=== PATIENT | male | born 1980 | race Caucasian/White ===

== ENCOUNTER 2020-09-19 08:22 | Outpatient (NON) | payer BC, SELFPAY ==
[2020-09-19 17:33] LABS: SARS-CoV-2 RNA PCR Negative
== END 2020-09-19 08:23 ==
PROVIDERS: Family Provider Family Medicine; PCP Family Medicine; Visit Provider Physician Assistant Medical
DX: R68.89 Other general symptoms and signs (principal); Z20.822 Contact with and (suspected) exposure to COVID-19
CPT/HCPCS: C9803; U0003; U0005

== ENCOUNTER 2022-12-31 06:50 | Day surgery (SDC) | payer BC, SELFPAY ==
[2022-12-19 15:38] VITALS: BMI 22.8
[2022-12-31 11:36] VITALS: BP 135/88; PULSE 70; RESP 16; TEMP 36.5; O2SAT 98
[2022-12-31] MEDS: LACTATED RINGERS 1,000 ML 150 ML IV CONT (11:49)
--- NOTE | 2022-12-31 12:21 | WPDANESEPPF ---
Anes - Initial Pre Proc Eval Procedure: Operation Date: 12/31/22 13:00 Proposed Procedures p Esophagogastroduodenoscopy - Jacobo Watt MD Date/Time: 12/31/22 12:21 Surgeon: Jacobo Watt MD Pre Op Diagnosis: GERD Patient Data Age: 42 Gender: M Height: 1.75 m Weight: 74.5 kg Last Vital Signs Temp 97.7 F 12/31/22 11:36 Pulse 70 12/31/22 11:36 Resp 16 12/31/22 11:36 BP 135/88 12/31/22 11:36 Pulse Ox 98 12/31/22 11:36 O2 Del Method Room Air 12/31/22 11:36 Allergies Allergy/AdvReac Type Severity Reaction Status Date / Time No Known Allergies Allergy Verified 12/31/22 11:36 Home Medications Medication Instructions Recorded Confirmed Type citalopram 40 mg tablet 40 mg PO DAILY #90 tabs 02/10/22 12/24/22 Rx hydroxyzine pamoate 25 mg capsule 25 mg PO BID PRN anxiety #20 caps 02/10/22 12/24/22 Rx (Vistaril) albuterol sulfate 90 mcg/actuation 1 inh inhalation Q4H PRN shortness 04/08/22 12/24/22 Rx aerosol inhaler (ProAir HFA) of breath or wheezing #6.7 grams omeprazole 40 mg capsule,delayed 40 mg PO DAILY #90 caps 08/05/22 12/24/22 Rx release syringe with needle, safety 3 mL #100 ea 09/26/22 12/24/22 Rx 23 gauge x 1 (BD Integra Syringe) trazodone 50 mg tablet See Rx Instructions .Route 10/30/22 12/24/22 Rx .COMPLEX #90 tabs testosterone cypionate 200 mg/mL 200 mg IM .Q 2 weeks #10 mL 12/09/22 12/24/22 Rx intramuscular oil lisinopril 30 mg tablet 30 mg PO DAILY #90 tabs 12/24/22 12/31/22 Rx Patient hx anesthesia problems: none Family hx anesthesia problems: none Results Review: All pre-operative results and documents have been reviewed as part of the pre-operative evaluation. [facility] Past Medical History Medical History Bloating BMI 23.0-23.9, adult BMI 24.0-24.9, adult BMI 25.0-25.9,adult Loose stools Low testosterone in male Vasectomy planned Family History Family History Father Hypertension Family history of elevated blood lipids Patient's father is in good health Diabetes mellitus Malignant neoplasm of prostate Mother Family history of malignant neoplasm of cervix Breast cancer Sibling No problems noted. 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 Gender identity (if verbalized by the patient): Male Spiritual care concerns: No Anes - Eval Final PreProcedure Day of Procedure 12/31/22 12:21 Patient weight: normal Heart: regular rate and rhythm Lungs: clear to auscultation Airway: Mallampati scale class II Neurological: alert and oriented Last oral intake: >/= 8 hours ASA classification: III Emergent: no Anesthetic plan: proceed Anesthesia type and monitoring: general GIVS and standard monitoring Results Review: All pre-operative results and documents have been reviewed as part of the pre-operative evaluation. Informed Consent: The patient's anesthetic plan and its attendant risks and benefits were discussed with the patient/family/POA. Questions were solicited and answers provided to the satisfaction of the patient/family/POA.
--- NOTE | 2022-12-31 12:42 | WPDHPUPDATE1 ---
History and Physical Update Update Date/Time: 12/31/22 12:42 History and Physical has been reviewed, including an updated exam of the patient. There are NO changes in the patient's condition. Risks, benefits, and alternatives have been discussed and questions answered. Patient agrees to proceed with procedure.
[2022-12-31 12:58] VITALS: BP 107/65; PULSE 68; RESP 18; O2SAT 93
[2022-12-31 13:08] VITALS: BP 103/69; PULSE 61; RESP 17; O2SAT 95
[2022-12-31 13:18] VITALS: BP 121/81; PULSE 64; RESP 16; O2SAT 99
== END 2022-12-31 13:27 | disposition home or self-care (01) ==
PROVIDERS: PCP Family Medicine; Visit Provider Internal Medicine Gastroenterology
PROC: 0DJ08ZZ Inspection of Upper Intestinal Tract, Via Natural or Artificial Opening Endoscopic (ICD-10-PCS; CPT 43235; principal; 2022-12-31 13:00)
DX: K21.00 Gastro-esophageal reflux disease with esophagitis, without bleeding (principal); K44.9 Diaphragmatic hernia without obstruction or gangrene; K29.70 Gastritis, unspecified, without bleeding; Z79.51 Long term (current) use of inhaled steroids; F17.210 Nicotine dependence, cigarettes, uncomplicated
CPT/HCPCS: 43239; 88305; J2704; J7120

== ENCOUNTER 2023-04-12 16:47 | Emergency (ER) | payer BC, SELFPAY ==
--- NOTE | ~2023-04-12 | XR_ITS ---
EXAMINATION: XR chest 2V DATE: 04/12/2023 17:50 INDICATION: Possible ingested foreign body TECHNIQUE: PA 11/16/2017 COMPARISON: None available FINDINGS: The lungs are free of acute opacities. No pleural effusion or pneumothorax. The cardiomedia stinal silhouette is normal. The visualized bones and soft tissues are unremarkable. IMPRESSION: 1. No acute cardiopulmonary abnormality. Reviewed, dictated and finalized at location F.
--- NOTE | ~2023-04-12 | XR_ITS ---
EXAMINATION: XR soft tissue neck INDICATION: Neck pain, possible ingested foreign body TECHNIQUE: Three views of the neck soft tissues are obtained. COMPARISON: 06/26/2017 FINDINGS: The neck soft tissues are unremarkable. No radiopaque foreign body is identified. No acute osseous findings are evident. IMPRESSION: 1. No radiopaque foreign body identified. Reviewed, dictated and finalized at location F.
[2023-04-12 16:51] VITALS: BP 176/121; PULSE 76; RESP 20; TEMP 36.4; O2SAT 96
--- NOTE | 2023-04-12 17:14 | ED.SKABFB ---
HPI - Skin/Abscess/Foreign Bdy General Chief complaint: Skin/Abscess/Foreign Body Stated complaint: foreign body in throat Time Seen by Provider: 04/12/23 17:11 Source: patient Mode of arrival: ambulatory History of Present Illness HPI narrative: patient is a pleasant 42-year-old male who presents the emergency department today ambulatory with a steady gait for evaluation of feeling like he has something stuck in the back of his throat. He states that he grilled out and thinks that maybe piece of the wire brush from cleaning the grill was on the steak he ate. He states he feels like he can feel the little piece to the back of his throat every time he swallows. He denies the complete inability to swallow, shortness of breath, feeling like his throat was swelling, inability to control his secretions, abdominal pain, nausea, vomiting, or any other symptoms. Related Data Home Medications Medication Instructions Recorded Confirmed omega 0-ytr-fbb-fish oil 1,000 mg 1 cap PO DAILY 01/23/23 01/23/23 (120 mg-180 mg) capsule (Fish Oil) Allergies Allergy/AdvReac Type Severity Reaction Status Date / Time No Known Allergies Allergy Verified 04/12/23 17:10 Review of Systems Review of Systems: CONSTITUTIONAL: Denies fever, chills, or sweats. EYES: Denies visual changes, redness, or discharge. ENT: feels foreign body to back of throat/mouth. pain with swallowing. CARDIOVASCULAR: Denies chest pain, palpitations, or edema. RESPIRATORY: Denies cough or dyspnea. GASTROINTESTINAL: Denies abdominal pain, nausea, vomiting, or diarrhea. GENITOURINARY: Denies dysuria or hematuria. SKIN: Denies rash or itching. MUSCULOSKELETAL: Denies back pain, joint pain, or myalgia. NEUROLOGIC: Denies headache, numbness, or weakness. PSYCHIATRIC: Denies anxiety or depression. All systems reviewed & are unremarkable except as noted in HPI and below PMFSH Past Medical History Medical History Bloating BMI 23.0-23.9, adult BMI 24.0-24.9, adult BMI 25.0-25.9,adult Loose stools Low testosterone in male Vasectomy planned Family History Family History Father Hypertension Family history of elevated blood lipids Patient's father is in good health Diabetes mellitus Malignant neoplasm of prostate Mother Family history of malignant neoplasm of cervix Breast cancer Sibling No problems noted. 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 Gender identity (if verbalized by the patient): Male Spiritual care concerns: No Exam Narrative: GENERAL: Well-appearing, well-nourished, and in no acute distress. HEAD: Normocephalic, atraumatic. EYES: PERRLA ENT: Nares clear, no rhinorrhea or epistaxis. no visualized foreign body, controlling secretions. mucous membranes moist. NECK: Supple. CHEST: Clear to auscultation. No respiratory distress. no stridor. HEART: Regular rate and rhythm. No murmur heard. Normal peripheral pulses. ABDOMEN: Soft, nontender, nondistended, normal active bowel sounds. EXTREMITIES: Normal range of motion. No edema. SKIN: Warm, dry, no rash. NEURO: No focal deficits. Alert and oriented x3. PSYCH: Normal mood and affect. Course Vital Signs Vital signs: Vital Signs Temperature 97.5 F L 04/12/23 16:51 Pulse Rate 76 04/12/23 16:51 Respiratory Rate 20 04/12/23 16:51 Blood Pressure 176
[2023-04-12] MEDS: ONDANSETRON HCL ODT 4 MG TABLET PO (18:32)
[2023-04-12] MEDS: BELLADONNA ALK/PHENOB ELIX 10 ML, MAG HYDROX/ALUMINUM HYD/SIMETH 30 ML, LIDOCAINE HCL 2... PO (18:32)
== END 2023-04-12 19:13 | disposition home or self-care (01) ==
PROVIDERS: Emergency Provider Nurse Practitioner; PCP Family Medicine
DX: R07.0 Pain in throat (principal); R03.0 Elevated blood-pressure reading, without diagnosis of hypertension; F17.210 Nicotine dependence, cigarettes, uncomplicated
CPT/HCPCS: 70360; 71046; 99283; A9270

== ENCOUNTER 2025-07-19 14:39 | Outpatient (CLI) | payer OTHER, SELFPAY ==
--- NOTE | ~2025-07-19 | XR_ITS ---
XR lumbar spine min 4V Indication: Lumbar radiculopathy Comparison: None Findings: The vertebral heights are intact. No fracture or subluxation. The disc heights are intact. Soft tissues unremarkable Impression: No acute abnormality. Reviewed, dictated and finalized at location P. MINER Impression: No acute abnormality.
--- NOTE | ~2025-07-19 | XR_ITS ---
XR cervical spine 4-5V Indication: Cervical radicular pain Comparison: None Findings: No fracture identified, no subluxation flexion and extension The disc heights are intact. Soft tissues unremarkable Impression: No acute abnormality. Reviewed, dictated and finalized at location P. TION SPECIALIST Impression: No acute abnormality.
--- NOTE | ~2025-07-19 | XR_ITS ---
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 Findings: No acute fracture or malalignment. No significant degenerative changes. Soft tissues unremarkable. Impression: No acute fracture or malalignment. Reviewed, dictated and finalized at location P. DESIGNER Impression: No acute fracture or malalignment.
--- NOTE | ~2025-07-19 | XR_ITS ---
EXAMINATION: XR shoulder RT min 2V, 07/19/2025 14:50 AUDIOMETRIST HISTORY: CHRONIC RT SHOULDER PAIN COMPARISON: No comparisons available. Findings: No acute fracture or malalignment. No significant degenerative changes. Soft tissues unremarkable. Impression: No acute fracture or malalignment. Reviewed, dictated and finalized at location P. OMETRIST Impression: No acute fracture or malalignment.
--- NOTE | ~2025-07-19 | XR_ITS ---
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 Findings: No acute fracture or malalignment. No significant degenerative changes. Soft tissues unremarkable. Impression: No acute fracture or malalignment. Reviewed, dictated and finalized at location P. F TECHNICIAN Impression: No acute fracture or malalignment.
--- NOTE | ~2025-07-19 | XR_ITS ---
EXAMINATION: XR shoulder LT min 2V, 07/19/2025 14:50 SPOT REMOVER HISTORY: CHRONIC LT SHOULDER PAIN COMPARISON: No comparisons available. Findings: No acute fracture or malalignment. No significant degenerative changes. Soft tissues unremarkable. Impression: No acute fracture or malalignment. Reviewed, dictated and finalized at location P. REMOVER Impression: No acute fracture or malalignment.
== END 2025-07-19 14:40 | disposition home or self-care (01) ==
LOC: MICIMG 14:40
PROVIDERS: PCP Family Medicine; Visit Provider Physician Assistant
DX: M25.561 Pain in right knee (principal); M25.562 Pain in left knee; M54.12 Radiculopathy, cervical region; M54.16 Radiculopathy, lumbar region
CPT/HCPCS: 72050; 72110; 73030; 73562